=== PATIENT | female | born 1975 | race Caucasian/White ===

== ENCOUNTER 2020-04-16 11:49 | Emergency (ER) | payer MEDICAID ==
[2020-04-16 11:55] VITALS: BP 123/79
--- NOTE | 2020-04-16 12:21 | ED Physician Documentation ---
History of Present Illness - Stated complaint Stated Complaint: MED REFILL - Chief complaint Chief Complaint: General - History obtained from History obtained from: Patient (Just moved to the area and does not have primary care yet. Ran out of her atenolol and is here simply for refill. 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: None : None HEENT: None Psych: None Musculoskeletal: None Derm: None - Past Surgical History Past Surgical History: Yes /SOFTWARE APPLICATION TESTER: Tubal ligation, LEEP (Cervical surgery) - Present Medications Home Medications: Ambulatory Orders Medication Instructions Recorded Confirmed Atenolol [Tenormin] 50 mg PO DAILY 04/16/20 04/16/20 Atenolol [Tenormin] 50 mg PO DAILY #90 tablet 04/16/20 - Allergies Allergies/Adverse Reactions: Allergies Allergy/AdvReac Type Severity Reaction Status Date / Time metronidazole [From Flagyl] Allergy Hives Verified 04/16/20 11:52 - Social History Does the pt smoke?: No Smoking Status: Current some day smoker Does the pt drink ETOH?: Yes Does the pt have substance abuse?: No - Immunizations Immunizations are current?: Yes PD ED PE NORMAL - Vitals Vital signs reviewed: Yes - General General: Alert and oriented X 3, No acute distress - Extremities Extremities: No edema, No calf tenderness / cord - Neuro Neuro: Alert and oriented X 3, Normal speech Results - Vitals Vitals: Vital Signs - 24 hr 04/16/20 11:52 Temperature 36.5 C Heart Rate 81 Respiratory 16 Rate Blood Pressure 123/79 O2 Saturation 98 Oxygen O2 Source Room air Departure - Departure Disposition: 01 Home, Self Care Clinical Impression: Essential hypertension Condition: Good Record reviewed to determine appropriate education?: Yes Instructions: ED HTN Established Prescriptions: Atenolol [Tenormin] 50 mg PO DAILY #90 tablet Comments: Continue your efforts to foreign exchange trader your insurance and to follow-up with a primary care physician when able. Return if you develop any worrisome issues.
== END 2020-04-16 12:23 | disposition home or self-care (01) ==
LOC: ED 11:49
DX: Z76.0 Encounter for issue of repeat prescription (principal); I10 Essential (primary) hypertension; F17.200 Nicotine dependence, unspecified, uncomplicated
CPT/HCPCS: 99282; 99283

== ENCOUNTER 2020-07-20 14:01 | Emergency (ER) | payer MEDICAID ==
[2020-07-20 14:17] VITALS: BP 124/73
--- NOTE | 2020-07-20 14:17 | ED Physician Documentation ---
History of Present Illness - Stated complaint Stated Complaint: PRESCRIPTION REFILL - History obtained from History obtained from: Patient - Additonal information Additional information: 45-year-old woman presents to the emergency department today for refill of her atenolol. She has no specific complaints. She moved to the area a few months ago but has had trouble setting up primary care because of some insurance issues. 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: Tubal ligation, LEEP (Cervical surgery) - Present Medications Home Medications: Ambulatory Orders Medication Instructions Recorded Confirmed Atenolol [Tenormin] 50 mg PO DAILY 04/16/20 04/16/20 Atenolol [Tenormin] 50 mg PO DAILY #90 tablet 04/16/20 Atenolol [Tenormin] 50 mg PO DAILY #90 tablet 07/20/20 - Allergies Allergies/Adverse Reactions: Allergies Allergy/AdvReac Type Severity Reaction Status Date / Time metronidazole [From Flagyl] Allergy Hives Verified 07/20/20 14:17 - Social History Does the pt smoke?: No Smoking Status: Current some day smoker Does the pt drink ETOH?: Yes Does the pt have substance abuse?: No - Immunizations Immunizations are current?: Yes PD ED PE NORMAL - Vitals Vital signs reviewed: Yes - General General: Alert and oriented X 3, No acute distress - HEENT HEENT: PERRL, EOMI - Neck Neck: Supple, no meningeal sign, No bony TTP - Back Back: No CVA TTP, No spinal TTP - Derm Derm: Normal color, Warm and dry - Extremities Extremities: No edema, No calf tenderness / cord - Neuro Neuro: Alert and oriented X 3, Normal speech Results - Vitals Vitals: Vital Signs - 24 hr 07/20/20 14:10 Temperature 37 C Heart Rate 73 Respiratory 16 Rate Blood Pressure 124/73 O2 Saturation 98 Oxygen O2 Source Room air Departure - Departure Disposition: 01 Home, Self Care Clinical Impression: Essential hypertension Condition: Good Record reviewed to determine appropriate education?: Yes Instructions: ED HTN Established Follow-Up: [facility] [Provider Group] Prescriptions: Atenolol [Tenormin] 50 mg PO DAILY #90 tablet Comments: Stop at the front end driver on the way out and see if they can assist you in setting up alcohol health such that you have access to primary care. Return as needed for new or worsening symptoms.
== END 2020-07-20 14:21 | disposition home or self-care (01) ==
LOC: ED 14:01
DX: Z76.0 Encounter for issue of repeat prescription (principal); I10 Essential (primary) hypertension; F17.200 Nicotine dependence, unspecified, uncomplicated
CPT/HCPCS: 99282; 99283

== ENCOUNTER 2020-10-17 15:06 | Emergency (ER) | payer MEDICAID ==
[2020-10-17 15:17] VITALS: BP 130/82
--- NOTE | 2020-10-17 15:21 | ED Physician Documentation ---
History of Present Illness - Stated complaint Stated Complaint: MED REFILL - Chief complaint Chief Complaint: General - History obtained from History obtained from: Patient - History of Present Illness Timing: Today Pain level max: 0 Pain level now: 0 - Additonal information Additional information: out of her atenolol. Needs refill. No PCP here yet. Called the walk in clinic and was told that they will not refill BP meds unless she is an established patient. 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: None : None HEENT: None Psych: None Musculoskeletal: None Derm: None - Past Surgical History Past Surgical History: Yes /CUSTOMER SUPPORT ASSOCIATE: Tubal ligation, LEEP (Cervical surgery) - Present Medications Home Medications: Ambulatory Orders Medication Instructions Recorded Confirmed Atenolol [Tenormin] 50 mg PO DAILY #90 tablet 10/17/20 - Allergies Allergies/Adverse Reactions: Allergies Allergy/AdvReac Type Severity Reaction Status Date / Time metronidazole [From Flagyl] Allergy Hives Verified 10/17/20 15:17 - Social History Does the pt smoke?: No Smoking Status: Current some day smoker Does the pt drink ETOH?: Yes Does the pt have substance abuse?: No - Immunizations Immunizations are current?: Yes PD ED PE NORMAL - Vitals Vital signs reviewed: Yes - General General: Alert and oriented X 3, No acute distress - HEENT HEENT: Moist mucous membranes - Cardiac Cardiac: RRR - Respiratory Respiratory: No respiratory distress, Clear bilaterally - Derm Derm: Warm and dry - Neuro Neuro: Alert and oriented X 3 - Psych Psych: Normal mood, Normal affect Results - Vitals Vitals: Vital Signs - 24 hr 10/17/20 15:14 Temperature 36.1 C L Heart Rate 69 Respiratory 18 Rate Blood Pressure 130/82 H O2 Saturation 99 Oxygen O2 Source Room air PD MEDICAL DECISION MAKING - ED course Complexity details: considered differential, d/w patient ED course: Atenolol refilled. No emergency medical condition at this time. This document was made in part using voice recognition software. While efforts are made to proofread this document, sound alike and grammatical errors may occur. Departure - Departure Disposition: 01 Home, Self Care Clinical Impression: Essential hypertension Condition: Good Instructions: ED HTN Established Follow-Up: Umer Huston MD [Provider Admit Priv/Credential] - Within [address] [facility] [Provider Group] [facility] [Provider Group] [facility] [Provider Group] Prescriptions: Atenolol [Tenormin] 50 mg PO DAILY #90 tablet Comments: You need to follow up with a primary care doctor for further medication refills. Dr. Huston is the Primary care doctor reclamation kettle tender for the ER this week.
== END 2020-10-17 15:27 | disposition home or self-care (01) ==
LOC: ED 15:06
DX: I10 Essential (primary) hypertension (principal); Z76.0 Encounter for issue of repeat prescription; M32.9 Systemic lupus erythematosus, unspecified
CPT/HCPCS: 99282; 99283

== ENCOUNTER 2020-10-20 19:54 | Outpatient (CLI) | payer MEDICAID | END 2020-10-20 19:55 | disposition home or self-care (01) | LOC: COV 19:54 | PROVIDERS: ATTEND Family Medicine | DX: Z20.822 Contact with and (suspected) exposure to COVID-19 (principal) ==

== ENCOUNTER 2021-05-30 16:25 | Outpatient (CLI) | payer MEDICAID | END 2021-05-30 16:26 | disposition home or self-care (01) | LOC: COV 16:25 | PROVIDERS: ATTEND Family Medicine | DX: R50.9 Fever, unspecified (principal); R05 Cough; R07.0 Pain in throat; R19.7 Diarrhea, unspecified; R09.81 Nasal congestion; J34.89 Other specified disorders of nose and nasal sinuses; Z20.822 Contact with and (suspected) exposure to COVID-19 ==